=== PATIENT | male | born 1965 | race Caucasian/White ===

== ENCOUNTER 2023-09-11 08:05 | Day surgery (SDC) | payer OTHER ==
[~2023-09-11] VITALS: Ht 170.2 cm; Wt 99.9 kg
[~2023-09-11 08:05] MED LIST: ALBU90OI INH; ATOR10 PO; Benzocaine Oral Spray 0.5ML UD ONE; FLUT1DIS5 INH; LAMO100 PO; LISI20 PO; Lactated Ringer's 1,000 ML IV SCH; QUET25 PO; SIMV10 PO; SYMBICORT 160-4.6 GM INH; TAMS.4ER PO; ZOLP10 PO; propofoL 0 ML IV ONE
--- NOTE | 2023-09-11 09:45 | NUR ---
Ambulatory in Day Surgery History, Chart, Medications and Allergies reviewed before start of procedure.Patient confirms NPO status and agrees with scheduled surgery.Lungs with inspiratory WZ through out. Sats>90% on ra. Pt did his Albuterol and Symbicort inhalers @ 0630 this am. Pt denies feeling sob. Pt states that he is supposed to wear a CPAP, but does not tolerate it. Patient States Post-Procedure ride home has been arranged.
[2023-09-11 09:48] VITALS: BP 137/81
[2023-09-11] MEDS ORDERED: Ipratropium/Albuterol SulF 2.5-0.5MG/3 ML Amp INH ONE (09:55)
--- NOTE | 2023-09-11 10:05 | NUR ---
at bedside to evaluate pt. Pt confirmed to have sleep apnea.BMI 34.5.Pt to call Dr. Russell's office to reschedule procedure with Anesthesia. Pt refused discharge instructions. Pt appeared angry. Pt states "I will not ever be coming back here or going to Dr. Russell's office either!" Pt discharged to home-pt refused writtern dc instructions and wheelchair. Pt left ambulatory with his belongings on hand.
--- NOTE | 2023-09-11 10:07 | NUR ---
Pt reports that his front tooth is loose-Dr. Russell made aware. Also, Dr. Russell aware of insp [facility]-ga ordered.
== END 2023-09-11 10:20 | disposition home or self-care (01) ==
LOC: ORSCMMR 08:05 → ORD 10:00 → ORSCMMR 10:00
DX: R10.13 Epigastric pain (principal); Z53.9 Procedure and treatment not carried out, unspecified reason; Z12.5 Encounter for screening for malignant neoplasm of prostate; I10 Essential (primary) hypertension; E55.9 Vitamin D deficiency, unspecified; Z79.899 Other long term (current) drug therapy
CPT/HCPCS: 36415; 80053; 82306; 84443; 85025; A9270; G0103; J2704; J7120

== ENCOUNTER → 2024-05-14 | Outpatient (CLI) | payer OTHER ==
[~2024-05-14] MED LIST changes: -Benzocaine Oral Spray 0.5ML UD ONE; -Lactated Ringer's 1,000 ML IV SCH; -propofoL 0 ML IV ONE
[2024-05-14 11:43] LABS: BASOPHILS ABSOLUTE AUTO 0.05 K/mm3 (0.00-0.23); BASOPHILS PERCENT AUTO 1 % (0-2); EOSINOPHILS ABSOLUTE AUTO 0.19 K/mm3 (0.00-0.68); EOSINOPHILS PERCENT AUTO 2 % (0-6); Hematocrit 44.7 % (37.0-53.0); Hemoglobin 15.3 g/dL (13.5-17.5); IMMATURE GRAN ABSOLUTE AUTO 0.05 K/mm3 (0.00-0.10); IMMATURE GRAN PERCENT AUTO 1 % (0-1); LYMPHOCYTES ABSOLUTE AUTO 3.11 K/mm3 (0.84-5.20); LYMPHOCYTES PERCENT AUTO 30 % (21-46); MONOCYTES ABSOLUTE AUTO 0.67 K/mm3 (0.16-1.47); MONOCYTES PERCENT AUTO 6 % (4-13); Mean Corpuscular HGB 30.2 pg (26.0-34.0); Mean Corpuscular HGB Conc 34.2 g/dL (31.5-36.5); Mean Corpuscular Volume 88 fL (80-100); Mean Platelet Volume 9.7 fL (9.1-12.4); NEUTROPHILS ABSOLUTE AUTO 6.44 K/mm3 (1.96-9.15); NEUTROPHILS PERCENT AUTO 61 % (41-73); Platelet Count 448 K/mm3 (150-400); RDW Coefficient Variation 12.4 % (11.7-14.2); RDW Standard Deviation 40.1 fL (35.1-46.3); Red Blood Cell Count 5.07 M/mm3 (4.30-5.90); White Blood Cell Count 10.51 K/mm3 (4.00-11.30)
[2024-05-14 12:06] LABS: Alanine Aminotransfer (ALT/SGP 28 U/L (12-78); Albumin, Blood 3.8 g/dL (3.4-5.0); Alk Phos 75 U/L (50-136); Anion Gap 12 mmol/L (3-11); Aspartate Aminotrans (AST/SGOT 20 U/L (12-37); Bilirubin, Total 0.4 mg/dL (0.1-1.0); Blood Urea Nitrogen 15 mg/dL (8-24); Bun/Creatinine Ratio 17.6 (12.0-20.0); CHOL/HDL RATIO 3.7; CO2, Blood 24 mmol/L (21-32); Calcium, Blood 8.8 mg/dL (8.5-10.1); Chloride, Blood 102 mmol/L (98-108); Cholesterol 198 mg/dL (50-200); Creatinine, Blood 0.85 mg/dL (0.60-1.20); Globulin, Blood 3.7 g/dL (2.2-4.0); Glomerular Filtration Rate 99 (60-); Glucose, Blood 111 mg/dL (70-99); HDL Cholesterol 54 mg/dL (>39); LDL/HDL RATIO 1.6; Low Density Lipoprotein Chol 87 mg/dL (0-110); Prostate Specific Antigen 0.433 ng/mL (0.000-4.000); Sodium, Blood 134 mmol/L (136-145); Total Protein, Blood 7.5 g/dL (6.4-8.2); Triglycerides 287 mg/dL (30-160); Very Low Density Lipoprot Chol 57 mg/dL (6-32)
== END | disposition home or self-care (01) ==
LOC: LAB 09:00 → LAB SHORT 09:00
PROVIDERS: Family Medicine
DX: Z12.5 Encounter for screening for malignant neoplasm of prostate (principal); E78.2 Mixed hyperlipidemia; E66.9 Obesity, unspecified; I10 Essential (primary) hypertension
CPT/HCPCS: 80053; 80061; 83036; 85025; G0103